=== PATIENT | female | born 1935 | race Hispanic/Latino ===

== ENCOUNTER 2017-02-28 10:40 | Day surgery (SDC) | payer MEDICARE, BC ==
[2016-05-18 11:03] VITALS: BMI 36.0
[2017-02-28 11:19] LABS: BASO # 0.07 K/mm3 (0.0-2.0); BASO % 0.6 % (0.0-3.0); EOS # 0.9 (0.0-0.7); EOS % 8.5 % (1.5-5.0); GRAN # 7.18 (1.4-6.5); GRAN % 65.1 % (50.0-68.0); HEMOGLOBIN 10.9 gm/dL (12.0-16.0); LYMPH # 2.3 (1.2-3.4); LYMPH % 20.5 % (22.0-35.0); MEAN CELL VOLUME 87.2 fL (80.0-105.0); MEAN CORPUSCULAR HEMOGLOBIN 28.4 pg (25.0-35.0); MEAN CORPUSCULAR HGB CONC 32.5 g/dl (31.0-37.0); MEAN PLATELET VOLUME 9.7 fl (7.0-11.0); MONO # 0.6 (0.1-0.6); MONO % 5.3 % (1.0-6.0); PLATELET COUNT 328 10^3/uL (120.0-450.0); RBC 3.84 10^6/uL (3.5-6.1); RED CELL DISTRIBUTION WIDTH 14.6 % (11.5-14.5); WHITE BLOOD COUNT 11.1 10^3/ul (4.5-11.0)
[2017-02-28 11:29] LABS: BLOOD UREA NITROGEN 21 mg/dL (7-21); CALCIUM 9.7 mg/dL (8.4-10.5); GFR AFRICAN-AMERICAN > 60; GFR NON-AFRICAN AMERICAN 53; INR 0.97 (0.93-1.08); PARTIAL THROMBOPLASTIN TIME 26.3 Seconds (23.7-30.8); PROTHROMBIN TIME 10.5 Seconds (9.9-11.8)
--- NOTE | 2017-02-28 11:42 | CP.SDSHP ---
Same Day Surgery H & P - History Proposed Procedure: thyroid Bx. Pre-Op Diagnosis: multiple thyroid nodules left lobe. - Previous Medical/Surgical History Cardiac: Hypertension, Valvular Heart Disease Pulmonary: Emphysema/COPD, Smoking Endocrine/Metabolic: Thyroid Disease, Diabetes, Obesity Neuro: Backaches Misc: Anemia - Allergies Allergies: Allergies No Known Allergies Allergy (Verified 06/14/13 11:10) - Physical Exam General Appearance: WNL. 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 - Impression Impression: multiple thyroid nodules. - Date & Time Date: 02/28/17 Time: 11:41 Short Stay Discharge - Short Stay Discharge Admitting Diagnosis/Reason for Visit: THYROID NODULE E04.9 Disposition: HOME/ ROUTINE Referrals: Alison Silva DO [Primary Care Provider] -
[2017-02-28] MEDS ORDERED: Midazolam 2 MG/2 ML VIAL ONE (14:09)
[2017-02-28] MEDS ORDERED: Sodium Chloride 0.45% 1,000 ML IV SCH (15:00)
[2017-02-28] MEDS ORDERED: Oxycodone/Acetaminophen 5/325 mg Tab PO PRN (15:00)
[2017-02-28 17:08] VITALS: BP 160/70; PULSE 63; RESP 18; TEMP 98; O2SAT 99
--- NOTE | 2017-02-28 20:52 | US ---
PROCEDURE: Ultrasound-guided left thyroid fine needle aspiration biopsy. CLINICAL HISTORY: 2.3 cm dominant left thyroid nodule. Additional smaller thyroid nodules. Evaluate for malignancy. PHYSICIAN(S): Carlos Aviles M.D. TECHNIQUE: The relative risks and indications for the procedure were explained to the patient and consent obtained. The patient was placed supine on the stretcher with the neck extended and preliminary sonography of the thyroid performed. This reveal a dominant 2.3 cm heterogeneous nodule in the left thyroid. The neck was prepped and draped in the usual sterile fashion. Conscious sedation and monitoring were provided throughout the procedure by a nurse. 1% Xylocaine was used to anesthetize the skin and soft tissues at the access site. Three passes with a 22-gauge needle were performed under ultrasound guidance for fine needle aspiration of the 2.3 cm heterogeneous nodule in the left thyroid. The slides were reviewed by pathology and deemed adequate. The patient tolerated the procedure well. IMPRESSION: 1. Ultrasound guided fine needle aspiration of a 2.3 cm heterogeneousnodule in the left thyroid.
== END 2017-02-28 17:10 | disposition home or self-care (01) ==
LOC: SDS 10:40
PROVIDERS: ATTEND Radiology Vascular & Interventional Radiology
DX: E04.1 Nontoxic single thyroid nodule (principal); I10 Essential (primary) hypertension; J44.9 Chronic obstructive pulmonary disease, unspecified; E11.9 Type 2 diabetes mellitus without complications; F17.200 Nicotine dependence, unspecified, uncomplicated; D64.9 Anemia, unspecified; E66.9 Obesity, unspecified; Z68.36 Body mass index [BMI] 36.0-36.9, adult; Z79.84 Long term (current) use of oral hypoglycemic drugs
CPT/HCPCS: 10022; 36415; 80048; 85025; 85610; 85730; 88173; 88305; J2250; J2405; J3010; J7030

== ENCOUNTER 2017-05-12 08:35 | Day surgery (SDC) | payer MEDICARE, BC ==
[2017-04-29 11:52] VITALS: BMI 34.9
--- NOTE | 2017-05-12 05:20 | HP ---
REASON FOR ADMISSION: Left heart catheterization, abnormal stress test, preoperative evaluation for carotid artery endarterectomy. BRIEF CLINICAL HISTORY: This is an 81-year-old female with past medical history of diabetes, hypertension, hyperlipidemia, and peripheral arterial disease, admitted for left heart catheterization because of abnormal stress test done as a preoperative evaluation for carotid artery endarterectomy. The patient had a duplex scan that showed right ICA 80% to 99% stenosis. There is a history of left carotid artery endarterectomy with 20 to 39% residual stenosis. The patient had preoperative evaluation underwent stress test that was abnormal, so patient is scheduled for elective cardiac catheterization and possible angioplasty. PAST MEDICAL HISTORY: Significant for diabetes, hypertension, hyperlipidemia, peripheral arterial disease, history of thyroid nodules, history of polycythemia vera, history of fatty liver. PAST SURGICAL HISTORY: Significant for endarterectomy. RECENT CARDIAC WORKUP: As follows: The patient had a stress test myocardial perfusion as a preoperative evaluation for carotid artery disease that showed probably abnormal stress myocardial perfusion study with reversible small defect, anteroseptal, suspicious of ischemia, ejection fraction 79%. The patient had echocardiography done 04/25/2017 that showed a trace pericardial effusion, no vegetation, no thrombus, no [employer]. LV ejection fraction 55%, trace mitral regurgitation, mild tricuspid regurgitation, RV systolic pressure 20 dated 04/25/2017. The patient had a bilateral carotid duplex on 04/01/2017 and that shows status post left carotid artery endarterectomy with 20 to 39% stenosis, right RCA 80 to 99% stenosis. REVIEW OF SYSTEMS: As per HPI. PHYSICAL EXAMINATION: As follows. GENERAL: Height of the patient 5 feet, weight of the patient 210, increased body mass index. HEENT: PERRLA. Extraocular muscles intact. NECK: Supple. No carotid bruits. No thyromegaly. CHEST: Clear to auscultation. HEART: S1 and S2 and regular. ABDOMEN: Soft. EXTREMITIES: Clubbing and cyanosis negative. LABORATORY DATA: Blood workup pending. IMPRESSION: An 81-year-old female with preoperative evaluation for carotid artery, abnormal stress test, distal septal ischemia. The patient is scheduled elective cardiac catheterization and possible angioplasty, preserved LV function ejection of 55%, trace mitral regurgitation, trace tricuspid regurgitation by echo. By stress test, a small defect distal anteroseptal, ejection fraction of 79%. Diabetes, hypertension, hyperlipidemia, carotid artery endarterectomy, status post left carotid artery endarterectomy, now the patient had high-grade stenosis on right. RECOMMENDATIONS: Cardiac catheterization. We will load with aspirin and Plavix. Further recommendation after the cardiac catheterization. We will follow with you. Thank you Dr. Elizondo and for the opportunity in taking care of the patient. We will follow with you. Further recommendation after the cardiac catheterization. Billy Alvarado MD
[2017-05-12 09:39] LABS: BASO # 0.05 K/mm3 (0.0-2.0); BASO % 0.5 % (0.0-3.0); EOS # 0.2 (0.0-0.7); GRAN # 7.01 (1.4-6.5); GRAN % 72.2 % (50.0-68.0); HEMATOCRIT 33.4 % (36.0-48.0); LYMPH # 1.6 (1.2-3.4); LYMPH % 16.9 % (22.0-35.0); MEAN CELL VOLUME 86.1 fl (80.0-105.0); MEAN CORPUSCULAR HEMOGLOBIN 28.1 pg (25.0-35.0); MEAN CORPUSCULAR HGB CONC 32.6 g/dl (31.0-37.0); MEAN PLATELET VOLUME 9.7 fl (7.0-11.0); MONO # 0.8 (0.1-0.6); MONO % 8.4 % (1.0-6.0); RED CELL DISTRIBUTION WIDTH 14.1 % (11.5-14.5); WHITE BLOOD COUNT 9.7 10^3/ul (4.5-11.0)
[2017-05-12 09:51] LABS: INR 0.99 (0.93-1.08); PARTIAL THROMBOPLASTIN TIME 26.6 Seconds (23.7-30.8)
[2017-05-12 09:56] LABS: CALCIUM 9.7 mg/dL (8.4-10.5); POTASSIUM 4.7 mmol/L (3.6-5.0)
[2017-05-12] MEDS ORDERED: Lidocaine 2% Inj (20ml) ONE (12:53)
[2017-05-12] MEDS ORDERED: Nitroglycerin 50mg in D5W 50 MG/250 ML BOTTLE IV ONE (12:53)
[2017-05-12] MEDS ORDERED: Midazolam 2 MG/2 ML VIAL ONE (13:29)
--- NOTE | 2017-05-12 13:34 | CARD ---
APPROVED REPORT EKG Measurement Heart [id number] <Conclusion> Sinus rhythm with 1st degree AV block Cannot rule out Anterior infarct, age undetermined Abnormal ECG
[2017-05-12] MEDS ORDERED: Sodium Chloride 0.9% 1,000 ML IV SCH (14:15)
[2017-05-12] MEDS ORDERED: Bacitracin 500 Units/gm Oint Foilpak UD TOP ONE (14:15)
[2017-05-12 14:36] VITALS: RESP 18; TEMP 97.5
[2017-05-12 14:46] VITALS: BP 145/51; PULSE 56; O2SAT 99
--- NOTE | 2017-05-12 16:16 | CARD ---
APPROVED REPORT Procedure(s) performed: Left Heart Catheterization HISTORY The patient is a 81 year-old female with a history of : peripheral vascular disease, diabetes mellitus with oral treatment , chronic lung disease, tobacco history() : The patient is a former smoker , hypertension , abnormal stress test for pre-op for carotid artery endarterectomy. INDICATION The indication(s) include : positive stress test. CASE TECHNIQUE The patient was brought electively to the Cardiac Catheterization Laboratory in a fasting state and was prepped and draped in a sterile manner. The left wrist was infiltrated with 2% Lidocaine subcutaneous anesthesia. A sheath was inserted into the left radial vein without difficulty. Coronary angiography was performed using coronary diagnostic catheters. The left coronary system was accessed and visualized with a Diagnostic ,5 Fr JL 3.5 catheter. The right coronary system was accessed and visualized with a Diagnostic ,6 Fr AR 1 catheter. The left ventricle was accessed and visualized with a 5 Fr Pigtail 145 (Angled) catheter. Left ventricular/Aortic Valve gradient assessed on pullback. Left ventriculogram was performed in CHRISTOPHER projection. Closure device was deployed with a Fr TR band without any complications. The patient tolerated the procedure well and there were no complications associated with the procedure. Vessel Analysis The patient's coronary anatomy is right dominant. The left main coronary artery is a large size vessel with diffuse calcification noted throughout this vessel and without significant stenosis. The left main bifurcates to the left anterior descending and circumflex. The left anterior descending artery is a medium size vessel with diffuse calcification noted throughout this vessel and without significant stenosis. There is a 40% stenosis in the proximal segment. The first diagonal branch is a medium size vessel with diffuse calcification noted throughout this vessel and without significant stenosis. There is a 40-50% stenosis in the proximal segment. The circumflex artery is a medium size vessel with diffuse calcification noted throughout this vessel and without significant stenosis. The first obtuse marginal branch is a medium size vessel with diffuse calcification noted throughout this vessel and without significant stenosis. The right coronary artery is a large size vessel with diffuse calcification noted throughout this vessel and without significant stenosis. The right posterior descending artery is a large size vessel with diffuse calcification noted throughout this vessel and without significant stenosis. The right posterolateral branch is a small size vessel Divides into upper and lower division, lower division has 95% stenosis oin mid section but ,2 mm vessel. There is a 95% stenosis in the mid segment. Left Ventricle The left ventricle is normal in size with normal contractility. There was no cardiomyopathy. The left ventricular ejection fraction is estimated to be 55%. The left ventricular end diastolic pressure is 16 mmHg. There was no gradient across the aortic valve upon pullback. Conclusion Major epicardial coronaries are ok, PLV Br of RCA,lower division has 95% stenosis, which is less than 2 mm vessel Preserved Lv FGx. Ef-55%, EDP-16 Recommendations Aggressive Medical TherapyCardiac Risk Reduction Program Weight Loss Reduction Program Pt . is cleared to go for carotid artery endarterectomy. Cc; Davy Fierro/ Ricardo/ keith.
[2017-05-12] MEDS ORDERED: Bacitracin 500 Units/gm Oint Foilpak UD ONE (16:29)
== END 2017-05-12 17:30 | disposition home or self-care (01) ==
LOC: CATH 08:35
PROVIDERS: ATTEND Internal Medicine Cardiovascular Disease
DX: R94.39 Abnormal result of other cardiovascular function study (principal); Z01.818 Encounter for other preprocedural examination; I10 Essential (primary) hypertension; E78.5 Hyperlipidemia, unspecified; D45 Polycythemia vera; J98.4 Other disorders of lung; E11.51 Type 2 diabetes mellitus with diabetic peripheral angiopathy without gangrene; K76.0 Fatty (change of) liver, not elsewhere classified; I08.1 Rheumatic disorders of both mitral and tricuspid valves; Z79.84 Long term (current) use of oral hypoglycemic drugs
CPT/HCPCS: 36415; 80048; 80061; 85025; 85610; 85730; 86850; 86900; 93005; 93458; 99152; C1769; C1887; J1644 ×2; J2250; J3010; J7030; J7040; Q9967

== ENCOUNTER 2018-08-11 09:55 | Day surgery (SDC) | payer MEDICARE, BC ==
[2018-06-22 08:38] VITALS: BMI 35.9
[2018-08-11 10:58] VITALS: O2SAT 100
[2018-08-11] MEDS ORDERED: Midazolam 2 MG/2 ML VIAL ONE (12:14)
[2018-08-11] MEDS ORDERED: Propofol 10 mg/ml Inj (20 ML) ONE (12:14)
[2018-08-11] MEDS ORDERED: Sodium Chloride 0.9% 1,000 ML IV SCH (13:30)
[2018-08-11 14:22] VITALS: BP 153/60; PULSE 66; RESP 21; TEMP 97.5
== END 2018-08-11 15:29 | disposition home or self-care (01) ==
LOC: ENDO 09:55
PROVIDERS: ATTEND Internal Medicine Gastroenterology
DX: K21.0 Gastro-esophageal reflux disease with esophagitis (principal); K29.50 Unspecified chronic gastritis without bleeding; D50.9 Iron deficiency anemia, unspecified; K57.30 Diverticulosis of large intestine without perforation or abscess without bleeding; K64.8 Other hemorrhoids; K44.9 Diaphragmatic hernia without obstruction or gangrene; E11.9 Type 2 diabetes mellitus without complications; J44.9 Chronic obstructive pulmonary disease, unspecified; E03.9 Hypothyroidism, unspecified
CPT/HCPCS: 43239; 45378; 82948; 88305; 88312; 88342; J2001; J2250; J2704; J7030